=== PATIENT | female | born 1960 | race Caucasian/White ===

== ENCOUNTER 2020-07-21 18:26 | Outpatient (CLI) | payer BC, SELFPAY ==
--- NOTE | ~2020-07-21 | XR_ITS ---
EXAMINATION: XR foot RT min 3V DATE: 07/21/2020 18:50 INDICATION: Right foot pain, initial encounter TECHNIQUE: Dorsoplantar, lateral, and 2 oblique views of the right foot were obtained. COMPARISON: None. FINDINGS: There is an acute, traumatic, closed, transverse fracture at the proximal aspect of the fif th proximal phalanx. Soft tissue swelling surrounds the fracture. There is a subtle oblique lucency i n the lateral base of the fifth metatarsal. 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 Dorsal and plantar calcaneal enthesophytes are noted. IMPRESSION: 1. Acute fracture of the fifth proximal phalanx. 2. Nondisplaced oblique fracture at the lateral base of the fifth metatarsal. Reviewed, dictated and finalized at location A.
== END 2020-07-21 18:27 | disposition home or self-care (01) ==
LOC: ANHIMG 18:32
PROVIDERS: PCP Family Medicine; Visit Provider Family Medicine
DX: S92.911A Unspecified fracture of right toe(s), initial encounter for closed fracture (principal); X58.XXXA Exposure to other specified factors, initial encounter
CPT/HCPCS: 73630

== ENCOUNTER 2020-09-11 08:05 | Outpatient (CLI) | payer BC, SELFPAY ==
--- NOTE | ~2020-09-11 | MM_ITS ---
EXAMINATION: MM screening [facility] HISTORY: Screening mammogram TECHNIQUE: Craniocaudal and mediolateral oblique 3-D tomosynthesis images were obtained and synthetic 2-D images were generated. CAD analysis was submitted and interpreted. COMPARISON: 01/26/2019, 11/09/2017, 10/11/2016 BREAST PARENCHYMAL COMPOSITION: There are scattered areas of fibroglandular density. FINDINGS: There is no evidence of suspicious mass, calcification, or architectural distortion to sugg est malignancy in either breast. There has been no suspicious interval change. IMPRESSION: 1. No mammographic evidence of malignancy. 2. Recommend routine screening mammography in one year. BI-RADS Category 1: Negative Reviewed, dictated and finalized at location A. 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
== END 2020-09-11 08:06 | disposition home or self-care (01) ==
LOC: ANHIMG 08:08
PROVIDERS: PCP Family Medicine; Visit Provider Family Medicine
DX: Z12.31 Encounter for screening mammogram for malignant neoplasm of breast (principal)
CPT/HCPCS: 77063; 77067

== ENCOUNTER 2021-10-21 07:59 | Outpatient (CLI) | payer BC, SELFPAY ==
--- NOTE | ~2021-10-21 | MM_ITS ---
EXAMINATION: MM screening [facility] BI w shawn HISTORY: Screening mammogram TECHNIQUE: Craniocaudal and mediolateral oblique 3-D tomosynthesis images were obtained and synthetic 2-D images were generated. CAD analysis was submitted and interpreted. COMPARISON: 09/11/2020, 01/26/2019, 11/09/2017 BREAST PARENCHYMAL COMPOSITION: There are scattered areas of fibroglandular density. FINDINGS: There is no evidence of suspicious mass, calcification, or architectural distortion to sugg est malignancy in either breast. There has been no suspicious interval change. IMPRESSION: 1. No mammographic evidence of malignancy. 2. Recommend routine screening mammography in one year. BI-RADS Category 1: Negative Reviewed, dictated and finalized at location A. 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
== END 2021-10-21 08:00 | disposition home or self-care (01) ==
LOC: ANHIMG 08:02
PROVIDERS: PCP Family Medicine; Visit Provider Obstetrics & Gynecology
DX: Z12.31 Encounter for screening mammogram for malignant neoplasm of breast (principal)
CPT/HCPCS: 77063; 77067